=== PATIENT | male | born 2000 | race Caucasian/White ===

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

== ENCOUNTER 2020-05-04 20:24 | Inpatient (IN) | payer MEDICAID, OTHER ==
[~2020-05-04] VITALS: Ht 175.3 cm; Wt 55.3 kg
--- NOTE | 2020-05-04 21:03 | NUR ---
PT CAME TO THE ER C/O LOWER ABD PAIN X 2 DAYS. +ABD DISTENTION. LAST BM TODAY AT 0600.PT DENIES N/V/D. RESPIRATIONS EVEN AND UNLABORED ON RA W/ NAD NOTED. PT CONNECTED TO THE MONITOR AND POX.
--- NOTE | 2020-05-04 21:21 | NUR ---
BLOOD COLLECTED AND SENT TO LAB
[2020-05-04 21:26] LABS: BASOPHILS % (AUTO) 0.1 % (0.0-2.0); EOSINOPHILS % (AUTO) 0.1 % (0.0-6.0); HEMATOCRIT 40 % (39-51); HEMOGLOBIN 13.1 g/dL (13.5-17.5); LYMPHOCYTES # (AUTO) 0.8 /CMM (0.8-4.8); LYMPHOCYTES % (AUTO) 6.6 % (20.0-44.0); MEAN CORPUSCULAR HGB CONC 33 g/dl (31.0-36.0); MEAN CORPUSCULAR VOLUME 77 fL (80-96); MONOCYTES # (AUTO) 1.2 /CMM (0.1-1.30); MONOCYTES % (AUTO) 9.8 % (2.0-12.0); NEUTROPHILS # (AUTO) 10.2 /CMM (1.8-8.9); NEUTROPHILS % (AUTO) 83.4 % (43.0-81.0); PLATELET COUNT (AUTO) 301 /CMM (150-450); WHITE BLOOD COUNT (AUTO) 12.2 K/uL (4.3-11.0)
[2020-05-04 22:00] LABS: CALCIUM, SERUM 9.2 mg/dL (8.5-10.1); CREATININE 1.1 mg/dL (0.6-1.3); POTASSIUM 3.6 mmol/L (3.5-5.1)
[2020-05-04 22:06] LABS: ALBUMIN 3.4 g/dL (3.4-5.0); BILIRUBIN,DIRECT 0.1 mg/dL (0.0-0.2); BILIRUBIN,TOTAL 0.5 mg/dL (0.2-1.0); TOTAL PROTEIN, SERUM 8.1 g/dL (6.4-8.2)
--- NOTE | 2020-05-04 22:39 | NUR ---
BACK FROM CT
--- NOTE | 2020-05-04 22:53 | NUR ---
LUZ MARIA PHAM SPEAKING WITH DR. TEMPLETON (PILOT SURGERY)
[2020-05-04] MEDS ORDERED: IV NS 0.9% 500 ML BAG IV ONE (23:00)
[2020-05-04] MEDS ORDERED: PIPERACILLIN /TAZOBACTAM 2.25 G VIAL IV ONE (23:00)
[2020-05-04] MEDS ORDERED: PIPERACILLIN /TAZOBACTAM 3.375 G VIAL IV ONE (23:01)
--- NOTE | 2020-05-04 23:59 | NUR ---
call from lab. rapid covid negative.
[2020-05-05] VITALS (9 sets, daily range): BP systolic 106–133; BP diastolic 51–74
[2020-05-05] MEDS ORDERED: BUDE3CAP15 PO (00:05)
[2020-05-05] MEDS ORDERED: ACETAMINOPHEN 325 MG TABLET PO PRN (01:30)
--- NOTE | 2020-05-05 01:30 | NUR ---
MS RN NOTE: RECEIVED PATIENT FROM ER, NO ACUTE DISTRESS NOTED. IV TO LAC #[address] ORIENTED PATIENT TO ROOM AND USE OF CALL LIGHT. INSTRUCTED PATIENT THAT HE IS NPO AND CAN NOT EAT OR DRINK FOR THE POSSIBLE SURGERY IN THE MORNING. TO HAVE CONSENTS SIGNED AND COMPLETED. BED LOCKED AND IN LOWEST POSITION, CALL LIGHT IN REACH. WILL CONTINUE TO MONITOR THROUGHOUT SHIFT.
[2020-05-05 03:13] LABS: BILIRUBIN,URINE NEGATIVE (NEGATIVE); COLOR,URINE YELLOW (YELLOW); LEUKOCYTE ESTERASE ,URINE NEGATIVE (NEGATIVE); NITRITE, URINE NEGATIVE (NEGATIVE); PH,URINE 7.5 (5.0-8.0); PROTEIN,URINE NEGATIVE (NEGATIVE); UGLUCOSE NEGATIVE (NEGATIVE); UROBILINOGEN,URINE 0.2 EU/dL (0.2)
[2020-05-05 03:17] LABS: BACTERIA,URINE Rare /HPF (None Seen); RBC,URINE 0-2 /HPF (0-2); SQUAMOUS EPITHELIAL CELL,UR None Seen /HPF (None Seen); WBC,URINE 0-2 /HPF (0-3)
[2020-05-05] MEDS ORDERED: PIPERACILLIN /TAZOBACTAM 3.375 G in IV D5W 50 ML IV ONE ×2 (05:00→15:00)
[2020-05-05] MEDS: IV D5/ 0.9% NACL 1,000 ML IV PRN (05:14)
[2020-05-05] MEDS ORDERED: PIPERACILLIN /TAZOBACTAM 3.375 G VIAL IV ONE (05:17)
--- NOTE | 2020-05-05 06:30 | NUR ---
MS RN NOTE: PATIENT RESTING IN BED, NO ACUTE DISTRESS NOTED. IV TO LAC IN PLACE, INFUSING D5NS AT 75ML/HR.. PATIENT NPO FOR SURGERY IN THE MORNING. CONSENTS AND CHECKLIST SIGNED AND FILED IN CHART. BED LOCKED AND IN LOWEST POSITION, CALL LIGHT IN REACH. WILL ENDORSE TO DAY NURSE TO CONTINUE WITH PLAN OF CARE.
--- NOTE | 2020-05-05 07:30 | NUR ---
RN MED SURG3 PATIENT IN BED, NO S/S OF DISTRESS, A/O X4, ON ROOM AIR, O2 SAT> 97%, BATHROOM PRIVILEGES, NPO, SKIN INTACT, LAC 18G, D 5NS RUNNING 75ML/HR, CONSENT PREPARED FOR SURGERY, IVS INTACT CLEAN DRY FLUSH WELL, BED IN LOWEST LOCKED POSITION, CALL LIGHT WITHIN REACH, SAFETY MEASURES IN PLACE, WILL CONTINUE TO MONITOR.
[2020-05-05 07:31] LABS: BASOPHILS % (AUTO) 0.1 % (0.0-2.0); EOSINOPHILS % (AUTO) 0.8 % (0.0-6.0); HEMATOCRIT 36 % (39-51); HEMOGLOBIN 11.6 g/dL (13.5-17.5); LYMPHOCYTES % (AUTO) 13.6 % (20.0-44.0); MEAN CORPUSCULAR HGB CONC 33 g/dl (31.0-36.0); MEAN CORPUSCULAR VOLUME 77 fL (80-96); MONOCYTES # (AUTO) 1.1 /CMM (0.1-1.30); MONOCYTES % (AUTO) 14.9 % (2.0-12.0); NEUTROPHILS # (AUTO) 5.4 /CMM (1.8-8.9); NEUTROPHILS % (AUTO) 70.6 % (43.0-81.0); PLATELET COUNT (AUTO) 238 /CMM (150-450); RED BLOOD CELL COUNT(AUTO) 4.64 MIL/uL (4.5-6.0); WHITE BLOOD COUNT (AUTO) 7.6 K/uL (4.3-11.0)
[2020-05-05 07:46] LABS: CALCIUM, SERUM 8.5 mg/dL (8.5-10.1); CREATININE 0.9 mg/dL (0.6-1.3); POTASSIUM 3.6 mmol/L (3.5-5.1)
[2020-05-05] MEDS ORDERED: BUDESONIDE 3 MG CAP.SR.24H PO SCH (09:00)
[2020-05-05] MEDS ORDERED: BUPIVACAINE 0.25% 75 MG/30 ML VIAL ONE (09:54)
[2020-05-05] MEDS ORDERED: LIDOCAINE MPF 1%-EPI 1:200,000 30 ML VIAL IJ ONE (09:54)
[2020-05-05] MEDS ORDERED: PIPERACILLIN /TAZOBACTAM 3.375 G in IV D5W 100 ML IV SCH ×2 (10:00→21:00)
--- NOTE | 2020-05-05 10:00 | NUR ---
RN MED SURG3 PATIENT IS GOING TO SURGERY PREOP VITALS TAKEN AND DOCUMENTED, TAKEN IN BED, CONSENT SIGNED, PATIENT UNDERSTAND PROCEDURE. ESCORTED TO SURGERY WITH SURGERY TEAM.
[2020-05-05] MEDS ORDERED: FENTANYL PF 100MCG/2ML AMPUL ONE ×3 (10:20→12:07)
[2020-05-05] MEDS ORDERED: MIDAZOLAM HCL 2 MG/2ML VIAL ONE (10:20)
[2020-05-05] MEDS ORDERED: ROCURONIUM BROMIDE 50 MG/5 ML ONE (10:21)
[2020-05-05] MEDS ORDERED: PIPERACILLIN /TAZOBACTAM 3.375 G in IV D5W 50 ML IV SCH (11:00)
[2020-05-05] MEDS ORDERED: METRONIDAZOLE 500MG/ NS 100ML 100 ML IV ONE (11:21)
--- NOTE | 2020-05-05 13:00 | NUR ---
RN MED SURG3 PATIENT RETURNED FROM SURGERY, INPUT ORDERS PER MD SPECIFICATIONS, PATIENT IS DOZING INTERMITTENTLY BUT IS A/O X4, REPORTS PAIN OF 8/10 WILL PROVIDE MORPHINE, VITALS TEMP 97.7, HR 79, 99% O2 SAT ON ROOM AIR, AND BP 133/72, WILL CONTINUE TO MONITOR.
[2020-05-05] MEDS: MORPHINE SULFATE INJ 2 MG/ML DISP.SYRIN IV PRN ×2 (14:17→17:24)
[2020-05-05] MEDS: METOCLOPRAMIDE HCL 10 MG/2 ML VIAL IV SCH ×2 (14:33→21:29)
--- NOTE | 2020-05-05 19:16 | NUR ---
RN MED SURG3 PATIENT IN BED, NO S/S OF DISTRESS, A/O X4, ON ROOM AIR, O2 SAT> 97%, CLEAR LIQUID DIET, LAC 18G, D 5NS RUNNING 75ML/HR, ABDOMINAL DRESSINGS IN PLACE, CLEAN DRY AND INTACT, IVS INTACT CLEAN DRY FLUSH WELL, BED IN LOWEST LOCKED POSITION, CALL LIGHT WITHIN REACH, SAFETY MEASURES IN PLACE, WILL CONTINUE TO MONITOR.
--- NOTE | 2020-05-05 19:30 | NUR ---
MS KANCHAN INITIAL NOTES RECEIVED PT IN BED RESTING COMFORTABLY IN BED WITHOUT ANY ACUTE DISTRESS NOTED. IVF still infusing on his left AC. no signs of any discofmort at this time. kept him warm and comfortable at all times. will continue monitoring. place call light at reach.
[2020-05-05] MEDS: LEVOFLOXACIN 500 MG /D5W 100ML 500 MG in PREMIX 1 EA IV SCH (21:29)
[2020-05-05] MEDS: HYDROCODONE/APAP 5/325MG TABLET PO PRN (22:01)
--- NOTE | 2020-05-05 22:01 | NUR ---
maintenance manager notes c/o abdominal pain , norco tablet given as ordered. kept him warm and comfortable at all times. place call light at reach.
[2020-05-05] MEDS: METRONIDAZOLE 500MG/ NS 100ML 500 MG in PREMIX 1 EA IV SCH (22:56)
--- NOTE | 2020-05-05 23:25 | NUR ---
ms kellen notes pt called and asking something to help him to sleep, ambien po given as ordered. safety precaution applied for pt safety. Antibiotic still infusing. kept him warm and comfortable at all times. place call light at reach. will continue monitoring.
[2020-05-05] MEDS: ZOLPIDEM TARTRATE 5 MG TABLET PO PRN (23:28)
[2020-05-06] MEDS: METOCLOPRAMIDE HCL 10 MG/2 ML VIAL IV SCH ×4 (02:10→19:56)
[2020-05-06] MEDS: HYDROMORPHONE 1 MG/1 ML DISP.SYRIN IV PRN ×2 (02:10→08:16)
--- NOTE | 2020-05-06 02:10 | NUR ---
ms kellen notes pt woke up and asking for his pain shot, dilaudid IVP administered by another nurse Stephanie/RN as ordered as well as his reglan IVP. kept him warm and comfortable at all times. place call light at reach.
--- NOTE | 2020-05-06 05:05 | NUR ---
coning machine operator notes pt sleeping comfortably in bed without any distress or any discomfort noted at this time. IVF still infusing. kept him warm and comfortable at all times. place call light at reach.
[2020-05-06] MEDS: METRONIDAZOLE 500MG/ NS 100ML 500 MG in PREMIX 1 EA IV SCH ×3 (06:00→21:41)
[2020-05-06] MEDS: IV D5/ 0.9% NACL 1,000 ML IV PRN (06:24)
[2020-05-06 06:32] LABS: HEMATOCRIT 35 % (39-51); HEMOGLOBIN 11.3 g/dL (13.5-17.5); LYMPHOCYTES # (AUTO) 0.7 /CMM (0.8-4.8); LYMPHOCYTES % (AUTO) 6.1 % (20.0-44.0); MEAN CORPUSCULAR HGB CONC 32 g/dl (31.0-36.0); MEAN CORPUSCULAR VOLUME 77 fL (80-96); MONOCYTES # (AUTO) 1.8 /CMM (0.1-1.30); MONOCYTES % (AUTO) 16.2 % (2.0-12.0); NEUTROPHILS # (AUTO) 8.6 /CMM (1.8-8.9); NEUTROPHILS % (AUTO) 77.7 % (43.0-81.0); PLATELET COUNT (AUTO) 258 /CMM (150-450); RED BLOOD CELL COUNT(AUTO) 4.52 MIL/uL (4.5-6.0)
[2020-05-06 06:58] LABS: CALCIUM, SERUM 8.7 mg/dL (8.5-10.1); CREATININE 0.7 mg/dL (0.6-1.3)
--- NOTE | 2020-05-06 07:05 | NUR ---
ms ship pilot dispatcher closing notes pt back to sleep after morning blood draw done. denies any pain at this time. all due meds given and all needs met. IVF still infusing at this time. Encourage pt to used the spirometer for his lungs and if he's not on pain try to ambulate as he can and pt understood well. kept him warm and comfortable at all time. will endorse to am nurse for continuity of care. place call light at reach.
--- NOTE | 2020-05-06 07:38 | NUR ---
TELE/RN OPENING NOTES RECEIVED PATIENT ON BED AWAKE ALERT AND ORIENTED X4. PATIENT IN NO APPARENT RESPIRATORY DISTRESS NOTED. COMPLAINED OF PAIN RATED 9/10 OF PAIN NOTED AT THIS TIME. WILL CONTINUE TO MONITOR.
[2020-05-06 08:00] VITALS: BP 126/69
[2020-05-06] MEDS: methylPREDNISolone SOD SUCC 40 MG/ML VIAL IV SCH ×2 (09:50→20:57)
[2020-05-06] MEDS: HYDROCODONE/APAP 5/325MG TABLET PO PRN ×3 (10:43→20:23)
[2020-05-06 16:00] VITALS: BP 128/67
--- NOTE | 2020-05-06 16:32 | NUR ---
RN NOTES BREAKFAST AND LUNCH WAS TOLERATED WELL. CHANGE DIET TO REGULAR. WILL CONTINUE TO MONITOR.
--- NOTE | 2020-05-06 19:29 | NUR ---
MS/RN CLOSING NOTES PATIENT IS ON BED. ALERT AND ORIENTED X4. PATIENT IN ROOM AIR SATURATION 100%. PATIENT IN NO APPARENT RESPIRATORY DISTRESS NOTED. NO COMPLAINED OF PAIN AT THIS TIME. IV ACCESS AT LEFT AC # 18 G WITH IV FLUID OF D5NS 1L AT 75MLHR ON AND INFUSING WELL. SURGICAL SITE CLEAN AND DRY. WILL ENDORSED TO CURRICULUM SUPERVISOR FOR SHASHANK.
[2020-05-06] MEDS: LEVOFLOXACIN 500 MG /D5W 100ML 500 MG in PREMIX 1 EA IV SCH (19:57)
[2020-05-06 20:00] VITALS: BP 134/62
[2020-05-06] MEDS: ZOLPIDEM TARTRATE 5 MG TABLET PO PRN (21:44)
[2020-05-07] MEDS: METOCLOPRAMIDE HCL 10 MG/2 ML VIAL IV SCH ×3 (02:04→14:12)
[2020-05-07] MEDS: METRONIDAZOLE 500MG/ NS 100ML 500 MG in PREMIX 1 EA IV SCH ×3 (04:44→20:17)
--- NOTE | 2020-05-07 05:39 | NUR ---
ALERT AND ORIENTATED X4 NEEDS TO BE ENCOURAGED TO AMBULATE AND HELP SELF MEDICATED X2 FOR PAIN WITH NORCO AND THIS WAS EFFECTIVE ABD DRESSING CDI
--- NOTE | 2020-05-07 07:17 | NUR ---
MS/RN OPENING NOTES RECEIVED PATIENT ON BED SLEEPING, EASILY AROUSABLE BY NAME AND LIGHT TOUCH. PATIENT IN NO APPARENT RESPIRATORY DISTRESS NOTED. NO COMPLAINED OF PAIN NOTED AT THIS TIME. WILL CONTINUE TO MONITOR.
[2020-05-07 08:00] VITALS: BP 132/65
[2020-05-07 08:35] LABS: CALCIUM, SERUM 8.7 mg/dL (8.5-10.1); CREATININE 0.7 mg/dL (0.6-1.3); MAGNESIUM 2.1 mg/dL (1.8-2.4); PHOSPHORUS 3.2 mg/dL (2.5-4.9)
[2020-05-07 08:52] LABS: HEMATOCRIT 34 % (39-51); LYMPHOCYTES # (AUTO) 0.4 /CMM (0.8-4.8); LYMPHOCYTES % (AUTO) 2.5 % (20.0-44.0); MEAN CORPUSCULAR HGB CONC 33 g/dl (31.0-36.0); MEAN CORPUSCULAR VOLUME 76 fL (80-96); MONOCYTES # (AUTO) 1.1 /CMM (0.1-1.30); MONOCYTES % (AUTO) 7.8 % (2.0-12.0); NEUTROPHILS # (AUTO) 12.8 /CMM (1.8-8.9); NEUTROPHILS % (AUTO) 89.7 % (43.0-81.0); PLATELET COUNT (AUTO) 291 /CMM (150-450); RED BLOOD CELL COUNT(AUTO) 4.41 MIL/uL (4.5-6.0); WHITE BLOOD COUNT (AUTO) 14.2 K/uL (4.3-11.0)
[2020-05-07] MEDS: methylPREDNISolone SOD SUCC 40 MG/ML VIAL IV SCH ×2 (09:36→20:24)
[2020-05-07] MEDS: ONDANSETRON HCL/PF 4 MG/2 ML VIAL IV PRN ×2 (11:30→17:53)
--- NOTE | 2020-05-07 12:56 | NUR ---
MS/RN NOTES DR. FUENTES ORDER DULCOLAX 10MG P.O. ONCE NOTED AND CARRIED OUT.
[2020-05-07] MEDS ORDERED: BISACODYL (5 MG) 5 MG TABLET.DR PO ONE (14:00)
[2020-05-07 16:00] VITALS: BP 129/77
--- NOTE | 2020-05-07 19:00 | NUR ---
MS/RN CLOSING NOTES PATIENT IS ON BED. ALERT AND ORIENTED X 4. PATIENT IS ON ROOM AIR SATURATION 98%. PATIENT IN NO APPARENT RESPIRATORY DISTRESS NOTED. NO COMPLAINED OF PAIN AT THIS TIME. SEEN AND EXAMINED BY MD WITH ORDERS MADE AND CARRIED OUT. ALL DUE MEDICATIONS WAS GIVEN. SAFETY PERSECUTIONS WAS IN PLACED. SIDE RAIL UP X2. CALL LIGHT WITHIN REACH. WILL ENDORSED TO BANK EXAMINER FOR SHASHANK. Addendum: 05/07/20 at 1943 by TANVIR CRUMP RN ERROR
--- NOTE | 2020-05-07 19:30 | NUR ---
MS RN OPENING NOTE RECEIVED PATIENT IN BED. A/OX4. TOLERATING ROOM AIR. RESP ARE EVEN AND UNLABORED. NO S/S SOB NOTED. NO /O PAIN AT THIS TIME. IN NO APPARENT DISTRESS. PATIENT IS VERY ANXIOUS. WANTS TO GO HOME, EDUCATION GIVEN ON NEW ORDERS FOR NPO, CHANGE OF IVF, AND KUB SCHEDULED FOR AM. BRYNN SANDOVAL ALSO SPOKE WITH PATIENT AND EDUCATED ABOUT WHY IT IS IMPORTANT TO HAVE A BM BEFORE DISCHARGE. IV ACCESS IN LAC#20 RUNNING D5NS@75ML/HR. BED IS LOW AND LOCKED, HOB ELEVATED IN SEMI FOWLERS, SIDE RIALS UP X2, CALL LIGHT WITHIN REACH. WILL CONTINUE TO MONITOR THROUGHOUT MY SHIFT.
--- NOTE | 2020-05-07 19:43 | NUR ---
MS/RN CLOSING NOTES PATIENT IS ON BED. ALERT AND ORIENTED X 4. PATIENT IS ON ROOM AIR SATURATION 98%. PATIENT IN NO APPARENT RESPIRATORY DISTRESS NOTED. NO COMPLAINED OF PAIN AT THIS TIME. SEEN AND EXAMINED BY MD WITH ORDERS MADE AND CARRIED OUT. ALL DUE MEDICATIONS WAS GIVEN. SAFETY PERSECUTIONS WAS IN PLACED. SIDE RAIL UP X2. CALL LIGHT WITHIN REACH. PATIENT VOMITED 4X IN MY SHIFT DR. FUENTES IS AWARE AND ORDER NPO IVF D5NS 1L WITH KCL 20 EQ AT 100 CC PER HOUR KUB, STOP REGLAN. NOTED AND CARRIED OUT. WILL ENDORSED TO SENIOR STACK ENGINEER FOR SHASHANK.
[2020-05-07 20:00] VITALS: BP_SYST 129; BP_SYST 139; BP_DIAS 76; BP_DIAS 77
[2020-05-07] MEDS ORDERED: Potassium Chloride 20 MEQ in IV D5/ 0.9% NACL 1,000 ML IV PRN (20:00)
--- NOTE | 2020-05-07 20:15 | NUR ---
ms rn note informed pharmacy that patient levoquin in not found in cassette or med room. they will provide another as well as bring the new order for D5NS WITH 20 MEQ KCL.
[2020-05-07] MEDS: MORPHINE SULFATE INJ 2 MG/ML DISP.SYRIN IV PRN (20:27)
[2020-05-07] MEDS: LEVOFLOXACIN 500 MG /D5W 100ML 500 MG in PREMIX 1 EA IV SCH (21:09)
--- NOTE | 2020-05-08 00:25 | NUR ---
MS RN NOTE PATIENT IS VERY ANXIOUS. AND WOULD LIKE A SLEEPING PILL. INFORMED HIM HE IS NPO AND TO HAVE NOTHING BY MOUTH. PATIENT WOULD LIKE TO ASK DOCTOR IS HE CAN POSSIBLY GET ANXIETY MEDICATION THROUGH IV TO HELP SLEEP. CALLED DR. FUENTES TO INFORM HIM PATIENTS REQUEST. STATED NPO EXCEPT MEDS. ORDERED AMBIEN 5MG PO QHS PRN, WHICH IS ALREADY ORDERED. ALSO ORDERED XANAX 0.25MG PO Q6HR PRN. ORDER READ BACK. WILL INFORM PATIENT.
[2020-05-08] MEDS ORDERED: ALPRAZOLAM 0.25 MG TABLET PO PRN (00:30)
--- NOTE | 2020-05-08 00:30 | NUR ---
MS RN NOTE PATIENT PREFERS AMBIEN. INFORMED HIM HE CAN HAVE ANXIETY MEDICATION IF HE STILL FEELS ANXIOUS IN ABOUT AN HOUR. HE IS AWARE, ALL NEEDS MET, EMPTIED URINAL, TURNED HEATER ON. PLACED BLANKETS ON PATIENT. EDUCATED ABOUT IV FLUIDS.
[2020-05-08] MEDS: ZOLPIDEM TARTRATE 5 MG TABLET PO PRN (00:33)
[2020-05-08] MEDS: METRONIDAZOLE 500MG/ NS 100ML 500 MG in PREMIX 1 EA IV SCH (05:10)
--- NOTE | 2020-05-08 07:30 | NUR ---
MS RN CLOSING NOTE PATIENT RESTING IN BED. A/OX4. TOLERATING ROOM AIR. NO RESP DISTRESS. MANAGED PAIN WITH MOPHINE. NO DISTRESS. CONTINUES TO BE ANXIOUS ABOUT GOING HOME. INFORMED HIM DOCTOR WILL NEED TO DISCUSS WITH IV ACCESS MAINTAINED IN LAC#20 RUNNING D5NS WITH 20MEQ KCL@100ML/HR. BED REMAINS LOW AND LOCKED, HOB ELEVATED IN SEMI FOWLERS, SIDE RIALS UP X2, CALL LIGHT WITHIN REACH. WILL ENDORSE TO NEXT SHIFT.
--- NOTE | 2020-05-08 07:35 | NUR ---
MS/RN OPENING NOTE RECEIVED THE PATIENT IN BED. PATIENT IS ALERT AND ORIENTED X4. DENIES SOB. PATIENT IS IN ROOM AIR. PATIENT DENIES PAIN. NOTED ABDOMINAL LAPAROSCOPIC INCISION DRESSING INTACT AND CLEAN. ABDOMEN SOFT AND NON-DISTENDED. LAC G 18 PATENT AND D5NS WITH 20 MEQ KCL INFUSING AT 100ML/HR AND NO S/S INFILTRATION NOTED. BED LOW AND LOCKED. SIDE RAILS UP X2. CALL LIGHT WITHIN REACH. WILL CONTINUE TO MONITOR.
--- NOTE | 2020-05-08 07:56 | NUR ---
MS/RN NOTE THE PATIENT IS SEEN BY DR TEMPLETON, WITH NEW ORDER OF FULL LIQUID DIET AND CLEARED FOR DISCHARGE NOTED AND CARRIED OUT Addendum: 05/08/20 at 0758 by MANISH ROSADO RN RN NOTE DR TEMPLETON IS MADE AWARE OF KUB RESULT AND PER MD NO NEW ORDERS
[2020-05-08] MEDS ORDERED: HYDR-4384 PO (08:57)
[2020-05-08] MEDS ORDERED: BUDE3CAP15 PO (08:57)
--- NOTE | 2020-05-08 09:29 | NUR ---
MS/RN NOTE MAY CHANGE ABDOMINAL LAPAROSCOPIC DRESSINGS BY A NURSE. Addendum: 05/08/20 at 0932 by MANISH ROSADO RN DRESSING CHANGE DONE. LAPAROSCOPIC SITES LOOKS CLEAR WITH NO DISCHARGE, NO REDNESS OR SWELLING. PATIENT TOLERATES DRESSING CHANGE WELL.
[2020-05-08] MEDS: methylPREDNISolone SOD SUCC 40 MG/ML VIAL IV SCH (09:32)
--- NOTE | 2020-05-08 10:05 | NUR ---
MS/RN NOTE PATIENT ALERT AND ORIENTED X4. DENIES PAIN. IN ROOM AIR AND OXYGEN SATURATION IN ROOM AIR IS AT 99%. DENIES SOB, PATIENT`S RESPIRATION REGULAR AND UNLABORED. ABDOMEN SOFT AND NON-DISTENDED. PATIENT TOLERATED FULL LIQUID DIET WELL. NO NAUSEA OR VOMITING. PATIENT HAD SOFT AND BROWN COLOR BOWEL MOVEMENT. DRESSING INTACT. DISCHARGE EDUCATION PROVIDED AND THE PATIENT VERBALIZED UNDERSTANDING. CALLED FATHER (RESPONSIBLE LIBERTARIAN) BUT NO ANSWER, HOWEVER, THE PATIENT STATED THAT HE WILL BE PICKED UP BY HIS MOTHER AND BROTHER VIA CAR. DISCHARGE PAPERS HANDED TO THE PATIENT WHICH ALSO INCLUDED A PRESCRIPTION (COPY IS SAVED IN THE CHART). THE PATIENT LEFT THE HOSPITAL IN STABLE CONDITION.
== END 2020-05-08 10:05 | disposition home or self-care (01) | DRG 230 ==
LOC: ER 20:25 → MED 05-05 00:26
PROVIDERS: ADMIT Internal Medicine; ATTEND Internal Medicine
PROC: 0DBF0ZZ Excision of Right Large Intestine, Open Approach (ICD-10-PCS; principal; 2020-05-05)
PROC: 0DBB0ZZ Excision of Ileum, Open Approach (ICD-10-PCS; 2020-05-05)
PROC: 0WJG4ZZ Inspection of Peritoneal Cavity, Percutaneous Endoscopic Approach (ICD-10-PCS; 2020-05-05)
DX: K50.812 Crohn's disease of both small and large intestine with intestinal obstruction (principal); K35.33 Acute appendicitis with perforation, localized peritonitis, and gangrene, with abscess
CPT/HCPCS: 36415; 74018; 80048-TC; 80076-TC; 81001; 83690-TC; 83735-TC; 84100-TC; 85025-TC; 85730-TC; 86850-TC; 87081-TC; 88307-TC; 97112-TC; 97116-TC; 97530-TC; A4216; A6209; C9803; G0378; J0330; J0690; J1100; J1170; J1956; J2250; J2270; J2405; J2543; J2704; J2765; J2920; J3010; J3480; J3490; J7042; J7060

== ENCOUNTER → 2023-04-14 | Emergency (ER) | payer MEDICAID, OTHER ==
[~2023-04-14] VITALS: Ht 177.8 cm; Wt 59.4 kg
[~2023-04-14] MED LIST: AMOX-430 PO; AMOX/CLAVULANATE 875 MG TABLET ONE; AMOX/CLAVULANATE 875 MG TABLET PO ONE; BUDE3CAP15 PO; HYDR-4384 PO; HYDR30CR79 TP; LIDOCAINE 2% 20 ML MDV ONE
[2023-04-14 14:57] VITALS: BP 121/66; TEMP 98; O2SAT 99
== END | disposition home or self-care (01) ==
LOC: ER 13:36
DX: K61.0 Anal abscess (principal)
CPT/HCPCS: 46050; 99284; A6403; A6407; J3490